=== PATIENT | female | born 1995 | race Two or more races ===

== ENCOUNTER 2022-03-24 16:59 | Emergency (ER) | payer MEDICAID, OTHER ==
[~2022-03-24] VITALS: Ht 160 cm; Wt 89.0 kg
[2022-03-24 21:50] VITALS: BP 102/65
== END 2022-03-24 23:50 | disposition home or self-care (01) ==
LOC: ER 16:59
DX: T74.21XA Adult sexual abuse, confirmed, initial encounter (principal)
CPT/HCPCS: 99281